=== PATIENT | male | born 1935 | race Caucasian/White ===

== ENCOUNTER → 2017-05-01 | Outpatient (CLI) | payer OTHER ==
--- NOTE | 2017-05-01 10:29 | PCVCIMAG ---
APPROVED REPORT Study performed: 05/01/2017 07:53:04 EXAM: Comprehensive 2D, Doppler, and color-flow Echocardiogram Patient Location: Echo lab Status: routine BSA: 2.18 HR: 64 bpmBP: 128/76 mmHg Rhythm: NSR with tachycardia Other Information Study Quality: Adequate Risk Factors: Cardiac Risk Factors: DM, HTN Indications Pacemaker Paroxysmal A Fib 2D Dimensions LVEF(%): 45.91 (>50%) IVSd: 12.84 (7-11mm) LVDd: 54.88 mm PWd: 11.70 (7-11mm)Ascending Ao: 41.23 (22-36mm) LVDs: 42.17 (25-40mm) Left Atrium: 49.21 (27-40mm) Aortic Root: 40.06 mm LV Single Plane 4CH: 56.25 % LV Single Plane 2CH: 56.58 %Angel's LVEF: 56.42 % Biplane EF: 55.4 % Volumes Left Atrial Volume (Systole) Single Plane 4CH: 91.00 mLSingle Plane 2CH: 100.43 mL LA ESV Index: 44.00 mL/m2 Aortic Valve AoV Peak Ge.: 1.90 m/s AO Peak Gr.: 14.48 mmHgLVOT Max P.94 mmHg LVOT Max V: 1.11 m/s Mitral Valve E/A Ratio: 0.9 MV Decel. Time: 253.03 ms MV E Max Ge.: 0.89 m/s MV A Ge.: 1.04 m/s IVRT: 117.65 ms TDI E/Lateral E': 31.00E/Medial E': 20.00 Pulmonary Valve PV Peak Ge.: 0.93 m/sPV Peak Gr.: 3.45 mmHg Pulmonary Vein P Vein S: 0.43 m/sP Vein A: 0.28 m/s P Vein D: 0.52 m/sP Vein A Dur.: 166.1 msec P Vein S/D Ratio: 0.83 Tricuspid Valve TR Peak Ge.: 3.38 m/s TR Peak Gr.: 45.65 mmHg Left Ventricle The left ventricle is normal size. There is normal LV segmental wall motion. Mild concentric left ventricular hypertrophy. Left ventricular systolic function is within lower limits of normal. LVEF is 50-55%. Grade I - abnormal relaxation pattern. Right Ventricle The right ventricle is normal size. The right ventricular systolic function is normal. Pacemaker lead is present in the right ventricle. Atria Left atrium is moderate-severely dilated. Right atrium is moderate-severely dilated. Pacemaker lead is present in the right atrium. Aortic Valve The aortic valve is normal in structure. Mild aortic regurgitation. There is no aortic valvular stenosis. Mitral Valve The mitral valve is normal in structure. Mild to moderate mitral regurgitation. No evidence of mitral valve stenosis. Tricuspid Valve The tricuspid valve is normal in structure. Mild to moderate tricuspid regurgitation with PAP of 56 mmHg. Pulmonic Valve The pulmonary valve is normal in structure. There is no pulmonic valvular regurgitation. Great Vessels The aortic root is mildly dilated to 4.0 cm. The ascending aorta is mildly dilated to 4.1 cm. IVC is mildly dilated in size and collapses with <50% inspiration Pericardium There is no pericardial effusion. <Conclusion> Left ventricular systolic function is within lower limits of normal. Mild concentric left ventricular hypertrophy. LVEF is 50-55%. Grade I - abnormal relaxation pattern. The right ventricle is normal size. Left atrium is moderate-severely dilated. Right atrium is moderate-severely dilated. Pacemaker lead is present in the right atrium. The aortic valve is normal in structure. Mild to moderate mitral regurgitation. Mild to moderate tricuspid regurgitation with PAP of 56 mmHg. There is no pericardial effusion.
== END | disposition home or self-care (01) ==
LOC: PCVCIMAG 08:15
PROVIDERS: ATTEND Internal Medicine Cardiovascular Disease
DX: I08.3 Combined rheumatic disorders of mitral, aortic and tricuspid valves (principal); I25.10 Atherosclerotic heart disease of native coronary artery without angina pectoris; I48.0 Paroxysmal atrial fibrillation; E11.9 Type 2 diabetes mellitus without complications; I10 Essential (primary) hypertension; F10.10 Alcohol abuse, uncomplicated; I27.2 Other secondary pulmonary hypertension; I77.89 Other specified disorders of arteries and arterioles; J44.9 Chronic obstructive pulmonary disease, unspecified; Z95.0 Presence of cardiac pacemaker; Z86.73 Personal history of transient ischemic attack (TIA), and cerebral infarction without residual deficits; Z87.891 Personal history of nicotine dependence; Z79.4 Long term (current) use of insulin
CPT/HCPCS: 93280; 93306; G0463

== ENCOUNTER → 2018-03-26 | Outpatient (CLI) | payer OTHER | END | disposition home or self-care (01) | LOC: PCVCCLINIC 14:33 | PROVIDERS: ATTEND Internal Medicine Cardiovascular Disease | DX: I25.10 Atherosclerotic heart disease of native coronary artery without angina pectoris (principal); E78.5 Hyperlipidemia, unspecified; I77.9 Disorder of arteries and arterioles, unspecified; E11.65 Type 2 diabetes mellitus with hyperglycemia; I10 Essential (primary) hypertension; I48.91 Unspecified atrial fibrillation; F10.10 Alcohol abuse, uncomplicated; J44.9 Chronic obstructive pulmonary disease, unspecified; Z95.0 Presence of cardiac pacemaker; Z79.4 Long term (current) use of insulin; Z87.891 Personal history of nicotine dependence; Z79.82 Long term (current) use of aspirin | CPT/HCPCS: 80061; 93280; G0463 ==

== ENCOUNTER → 2018-09-24 | Outpatient (CLI) | payer OTHER ==
--- NOTE | 2018-09-24 14:41 | PCVCIMAG ---
APPROVED REPORT Surgery/Intervention Endarterectomy: right Doppler Spectral Velocity Analysis PSV / EDVPSV / EDV ECA (R) 98 / 7 cm/sECA (L) 88 / 11 cm/s dICA (R) 35 / 11 cm/sdICA (L) 47 / 14 cm/s Romario (R) 48 / 14 cm/smICA (L) 67 / 18 cm/s pICA (R) 32 / 6 cm/spICA (L) 59 / 16 cm/s Bulb (R) 48 / 10 cm/sBulb (L) 70 / 16 cm/s dCCA (R) 67 / 12 cm/sdCCA (L) 60 / 14 cm/s mCCA (R) 77 / 11 cm/smCCA (L) 77 / 16 cm/s Vert (R) 38 / 7 cm/sVert (L) 43 / 11 cm/s ICA/CCA 0.72ICA/CCA 1.12 Findings The right carotid bulb has mild plaque. The right proximal internal carotid artery shows no significant stenosis, prior carotid endarterectomy. The right common carotid artery shows no significant stenosis. The right external carotid artery shows no significant stenosis. The left carotid bulb has moderate calcified plaque. The left proximal internal carotid artery shows <40% stenosis. The left common carotid artery shows no significant stenosis. The left external carotid artery shows no significant stenosis. Conclusion 1. Right internal carotid artery plaquing, prior CEA 2. Left internal carotid artery stenosis (<40%) 3. Antegrade vertebral flow
== END | disposition home or self-care (01) ==
LOC: PCVCIMAG 13:00
PROVIDERS: ATTEND Internal Medicine Cardiovascular Disease
DX: I65.23 Occlusion and stenosis of bilateral carotid arteries (principal); I77.9 Disorder of arteries and arterioles, unspecified
CPT/HCPCS: 93880

== ENCOUNTER → 2019-04-01 | Outpatient (CLI) | payer OTHER | END | disposition home or self-care (01) | LOC: PCVCCLINIC 15:44 | PROVIDERS: ATTEND Internal Medicine Cardiovascular Disease | DX: I25.10 Atherosclerotic heart disease of native coronary artery without angina pectoris (principal); E78.00 Pure hypercholesterolemia, unspecified; F10.10 Alcohol abuse, uncomplicated; I48.0 Paroxysmal atrial fibrillation; I65.23 Occlusion and stenosis of bilateral carotid arteries; I42.9 Cardiomyopathy, unspecified; R26.81 Unsteadiness on feet; Z95.0 Presence of cardiac pacemaker; Z79.82 Long term (current) use of aspirin; Z79.899 Other long term (current) drug therapy; Z87.891 Personal history of nicotine dependence; Z72.89 Other problems related to lifestyle | CPT/HCPCS: 36415; 80061; 93280; G0463 ==

== ENCOUNTER → 2019-04-18 | Outpatient (CLI) | payer OTHER ==
[~2019-04-18] MED LIST: REGADENOSON 0.4 MG/5 ML DISP.SYRIN. IV ONE
--- NOTE | 2019-04-18 17:08 | PCVCIMAG ---
APPROVED REPORT Study performed: 04/18/2019 12:30:16 EXAM: Comprehensive 2D, Doppler, and color-flow Echocardiogram Patient Location: Echo lab Room #: 2Status: routine BSA: 2.19 HR: 80 bpmBP: 150/74 mmHg Rhythm: Pacemaker,NSR Risk Factors: Cardiac Risk Factors: Hyperlipidemia Indications Atrial Fibrillation Pacemaker CAD Cardiomyopathy 2D Dimensions IVSd: 15.00 (7-11mm)LVOT Diam: 24.42 (18-24mm) LVDd: 49.39 mm PWd: 12.59 (7-11mm)Ascending Ao: 41.13 (22-36mm) LVDs: 29.56 (25-40mm) Left Atrium: 39.25 (27-40mm) Aortic Root: 32.42 mm LV Single Plane 4CH: 55.65 % LV Single Plane 2CH: 55.24 % Biplane EF: 56.6 % Volumes Left Atrial Volume (Systole) Single Plane 4CH: 91.06 mLSingle Plane 2CH: 98.75 mL Biplane LA Volume: 102.00 mLLA ESV Index: 47.00 mL/m2 Aortic Valve AoV Peak Ge.: 1.86 m/s AO Peak Gr.: 14.13 mmHgLVOT Max P.79 mmHg AO Mean Gr.: 8.50 mmHg AO V2 Mean: 1.39 m/sLVOT Max V: 1.03 m/s AO V2 VTI: 42.47 cm JEREMIAH Vmax: 2.59 cm2 Mitral Valve E/A Ratio: 0.9 MV Decel. Time: 116.20 ms MV E Max Ge.: 0.87 m/s MV A Ge.: 0.96 m/s TDI E/Lateral E': 21.75E/Medial E': 21.75 Medial E' Ge.: 0.04 m/s Lateral E' Ge.: 0.04 m/s Pulmonary Valve PV Peak Ge.: 0.92 m/sPV Peak Gr.: 3.40 mmHg Pulmonary Vein P Vein S: 0.42 m/sP Vein A: 0.30 m/s P Vein D: 0.27 m/sP Vein A Dur.: 79.6 msec P Vein S/D Ratio: 1.56 Tricuspid Valve TR Peak Ge.: 3.27 m/s TR Peak Gr.: 42.66 mmHg PA Pressure: 50.00 mmHg Left Ventricle The left ventricle is normal size. There is normal LV segmental wall motion. Mild concentric left ventricular hypertrophy. Left ventricular systolic function is normal. The left ventricular ejection fraction is within the normal range. LVEF is 55-60%. Findings suggest the left atrial pressure is elevated. Right Ventricle The right ventricle is normal size. The right ventricular systolic function is normal. Atria Left atrium is moderately dilated. Right atrium is moderately dilated. Pacemaker lead is present in the right atrium. Aortic Valve The aortic valve is normal in structure. No aortic regurgitation is present. There is no aortic valvular stenosis. Mitral Valve The mitral valve is normal in structure. There is no mitral valve regurgitation noted. No evidence of mitral valve stenosis. Tricuspid Valve The tricuspid valve is normal in structure. Mild tricuspid regurgitation with a PA pressure of 50 mmHg Mild pulmonary hypertension.. Pulmonic Valve The pulmonary valve is normal in structure. There is no pulmonic valvular regurgitation. Great Vessels The aortic root is normal in size. The ascending aorta is normal in size. Aortic arch is not well visualized. IVC is normal in size and collapses >50% with inspiration. Pericardium There is no pericardial effusion. There is no pleural effusion. <Conclusion> The left ventricle is normal size. Mild concentric left ventricular hypertrophy. LVEF is 55-60%. Findings suggest the left atrial pressure is elevated. The right ventricle is normal size. Left atrium is moderately dilated. Right atrium is moderately dilated. Pacemaker lead is present in the right atrium. The aortic valve is normal in structure. There is no mitral valve regurgitation noted. Mild tricuspid regurgitation with a PA pressure of 50 mmHg Mild pulmonary hypertension.. The aortic root is normal in size. The ascending aorta is normal in size. Aortic arch is not well visualized. There is no pericardial effusion.
--- NOTE | 2019-04-19 11:46 | PCVCIMAG ---
APPROVED REPORT Imaging Protocol: Rest Tc-99m/Stress Tc-99m 1 day Study performed: 04/18/2019 13:54:56 Indication: Paroxysmal Atrial Fibrillation, CAD, ICM Patient Location: Out-Patient Stress Nurse: Kat May RN, Fern Singleton RN [place] Tech:[facility] Ht: 6 ft 0 in Wt: 213 lbs BSA: 2.19 m2 HR: 87 bpm BP: 175/91 mmHg BMI: 28.8 Rhythm: Sinus Rhythm, 1st degree AV block, PVC's Medical History Medical History: HTN, Hyperlipidemia, CVD, Former Smoker, ICD Medications: Metoprolol, Amlodipine, Monopril, ASA, Lasix, Simvastatin Allergies: No known drug allergies Cardiac Risk Factors: Age Previous Cardiac Procedures: PCI Pretest Chest Pain Characteristics: No chest pain Exercise History: Sedentary Meds Held (24 hrs): Metoprolol Resting Data Rest SPECT myocardial perfusion imaging was performed in supine position 45 minutes following the intravenous injection of 10 mCi of Tc-99m Sestamibi. Time of rest injection: 1315 Date: 04/18/2019 Administration Route: IV Administration Site: Right AC Pharmacologic Stress Pharmacologic stress test was performed by injecting Regadenoson 0.4 mg IV push over 10-15 seconds immediately followed by the intravenous injection of 33.9 mCi of Tc-99m Sestamibi. Time of stress injection: 1430 Date: 04/18/2019 Administration Route: IV Administration Site: Right AC Gated Stress SPECT was performed 45 minutes after stress injection. The images were gated to evaluate regional wall motion and calculate left ventricular ejection fraction. Stress Test Details Stress Test: Pharmacologic stress testing performed using 0.4 mg of regadenoson per 5 mL given IV over 10 seconds. Reason for pharmacologic stress test: physical limitation, gait instability. HRMax Heart Rate (APMHR): 139 bpm Resting HR: 87 bpmTarget HR (85% APMHR): 118 bpm Max HR Achieved: 99 bpm % of APMHR: 71 Recovery HR: 90 bpm BP Resting BP: 175/91 mmHg Max BP: 191/88 mmHg Recovery BP: 154/85 mmHg ECG Resting ECG: Sinus Rhythm, 1st degree AV block, PVC's Stress ECG: Sinus Rhythm, 1st degree AV block, PVC's Arrhythmia: PVC's Recovery ECG: Sinus Rhythm, 1st degree AV block, PVC's Clinical Reason for Termination: Completed protocol Stress Symptoms: Dyspnea Exercise duration: min 55 sec Symptoms resolved with caffeine.Symptoms resolved with caffeine. Stress ECG Conclusion ECG: Non-ischemic Study Quality Study: Good Study Data Post stress, the left ventricular ejection was 56%.. SSS: 1 SRS: 5 SDS: 0 TID = 1.16. Perfusion No evidence of stress induced ischemia or prior myocardial infarction. Wall Motion Normal left ventricular function with no regional wall motion abnormalities. Nuclear Conclusion No evidence of stress induced ischemia or prior myocardial infarction. Post stress, the left ventricular ejection was 56%. No prior study available for comparison. Interpreted by: Archie Mo MD Electronically Approved: 04/18/2019 18:20:57 <Conclusion> ECG: Non-ischemic
== END | disposition home or self-care (01) ==
LOC: PCVCIMAG 12:24
PROVIDERS: ATTEND Internal Medicine Cardiovascular Disease
DX: I07.1 Rheumatic tricuspid insufficiency (principal); I25.10 Atherosclerotic heart disease of native coronary artery without angina pectoris; I42.9 Cardiomyopathy, unspecified; I27.20 Pulmonary hypertension, unspecified
CPT/HCPCS: 78452; 93017; 93306; A9500; J2785